=== PATIENT | male | born 1985 | race Hispanic/Latino ===

== ENCOUNTER 2023-10-10 09:17 | Day surgery (SDC) | payer BC ==
[2023-10-07 11:04] VITALS: BMI 46.0
[2023-10-10] MEDS ORDERED: PROPOFOL 40 ML ONE ×2 (11:44→11:52)
[2023-10-10] MEDS ORDERED: Midazolam HCl 2 mg/2 ml Vial ONE ×2 (11:47→11:48)
[2023-10-10] MEDS ORDERED: Protamine Sulfate 50 MG/5 ML VIAL ONE (12:07)
[2023-10-10] MEDS ORDERED: fentaNYL 50 mcg/mL 1 mL Vial ONE (12:43)
[2023-10-10] MEDS ORDERED: Rocuronium Bromide 10 MG/ML (10ML VIAL) ONE (12:43)
[2023-10-10] MEDS ORDERED: PROPOFOL 20 ML ONE (12:43)
== END 2023-10-10 13:00 | disposition home or self-care (01) ==
LOC: SDC 09:17
PROVIDERS: ATTEND Internal Medicine Gastroenterology
PROC: 0DBP8ZZ Excision of Rectum, Via Natural or Artificial Opening Endoscopic (ICD-10-PCS; principal; 2023-10-10)
PROC: 0DBL8ZZ Excision of Transverse Colon, Via Natural or Artificial Opening Endoscopic (ICD-10-PCS; principal; 2023-10-10)
DX: D12.8 Benign neoplasm of rectum (principal); D12.3 Benign neoplasm of transverse colon; K64.8 Other hemorrhoids; B19.20 Unspecified viral hepatitis C without hepatic coma; K92.1 Melena; Z79.899 Other long term (current) drug therapy
CPT/HCPCS: 88305; J2250; J2704; J2720; J3010

== ENCOUNTER 2024-04-10 16:25 | Outpatient (CLI) | payer OTHER | END 2024-04-10 16:26 | disposition home or self-care (01) | LOC: SCSRAD 16:25 | PROVIDERS: ATTEND Family Medicine | DX: M54.50 Low back pain, unspecified (principal); M54.6 Pain in thoracic spine; M47.814 Spondylosis without myelopathy or radiculopathy, thoracic region | CPT/HCPCS: 72072; 72100 ==